=== PATIENT | female | born 1930 | race Caucasian/White ===

== ENCOUNTER 2016-12-18 14:16 | Emergency (ER) | payer MEDICARE ==
[2016-12-18] MEDS ORDERED: ZOCOR10 M1 PO (14:25)
[2016-12-18] MEDS ORDERED: XANAX0.25 M1 PO (14:25)
[2016-12-18] MEDS ORDERED: MYSOLINE50 M3 PO (14:26)
[2016-12-18] MEDS ORDERED: HIBICLENS118 ML TP (17:09)
[2016-12-18] MEDS ORDERED: KEFLEX500 M4 PO (17:09)
[2016-12-18] MEDS ORDERED: NORCO 5-325 TA1 EACH PO (17:09)
== END 2016-12-18 17:27 ==
LOC: EDMED 14:16
PROC: 0CQ0XZZ Repair Upper Lip, External Approach (ICD-10-PCS; principal; 2016-12-18)
DX: S01.511A Laceration without foreign body of lip, initial encounter (principal); S01.21XA Laceration without foreign body of nose, initial encounter; E78.5 Hyperlipidemia, unspecified; Z79.899 Other long term (current) drug therapy; W22.8XXA Striking against or struck by other objects, initial encounter; Y92.009 Unspecified place in unspecified non-institutional (private) residence as the place of occurrence of the external cause